=== PATIENT | male | born 2000 | race Hispanic/Latino ===

== ENCOUNTER 2024-11-20 15:05 | Observation (INO) | payer SELFPAY ==
[2024-11-20] VITALS (13 sets, daily range): BP systolic 126–158; BP diastolic 66–93; PULSE 83–125; RESP 15–24; TEMP 36.9–37.4; O2SAT 93–100; BMI 25.8; BMI 29.2
--- NOTE | 2024-11-20 | PATH_ITS ---
[facility] Accession Number: [id number] No. of containers..01 Tissue . 01 Material submitted: . appendix - APPENDIX . 01 Diagnosis: APPENDIX, APPENDECTOMY: Acute appendicitis and acute serositis. Negative for dysplasia or malignancy. MRV 11/25/2024 1456 Local . 01 Electronically signed: . Alize Armendariz MD, Pathologist NPI- [id number] . 01 Gross description: . The specimen is received in formalin, labeled with two patient identifiers and appendix, and consists of a 5.5 x 1.0 x 0.9 cm vermiform appendix with a 2.8 x 1.5 x 0.9 cm attached mesoappendix. The serosal surface is archibald-plaza with diffuse yellow to green laminated exudate and slightly congested serosal vessels. The appendiceal resection margin is stapled and is inked blue. The specimen is serially sectioned to slow an intact appendiceal wall ranging from 0.2 cm up to 0.3 cm. No perforation is appreciated. The lumen is focally dilated and ranges from 0.3 cm up to 1.4 cm in diameter. The lumen is filled with hemorrhagic and brown fecal material with a 0.8 cm, brown fecalith. Applications Engineer sections are submitted as follows: A1: Appendiceal resection margin and tip of appendix. A2: Applications Engineer cross sections. ([id number]) /[id number] 11/22/2024 1205 Local . 01 Pathologist provided ICD-10: K35.80 . 01 CPT . 555894 Specimen Comment: A courtesy copy of this report has been sent to [facility] Performed at: [address] [address], [place], [place] [id number] MD Russ Solorzano MD Phone: [phone]
--- NOTE | 2024-11-20 15:33 | ED.ABDPAIN ---
HPI - Abdominal Pain General Chief Complaint: Abdominal Pain Stated Complaint: back/abd pain , nausea Time Seen by Provider: 11/20/24 15:28 Source: patient Mode of arrival: Ambulatory History of Present Illness HPI narrative: This is a 24-year-old male presents emergency department due to abdominal pain for a day. He was not recall any accidents that may have caused this pain. He denies eating any abnormal foods. He states pain began this morning around his belly button and states that is somewhat worse in the right lower quadrant. Denies any changes in bowel movements. Last had a small cup of coffee roughly 730 and this morning. Reports some mild nausea. Denies any fevers. Denies any medical history or surgical history. Related Data Home Medications ?Medication ?Instructions ?Recorded ?Confirmed No Known Home Medications 11/20/24 11/20/24 Previous Rx's ?Medication ?Instructions ?Recorded oxycodone 5 mg tablet 5 mg PO Q3H PRN Pain, Moderate 11/21/24 (4-6) #20 tabs Allergies Allergy/AdvReac Type Severity Reaction Status Date / Time No Known Drug Allergies Allergy Unverified 11/20/24 15:17 Review of Systems Review of Systems Narrative: GENERAL: Denies chills, fatigue, malaise, fever, sweats. HEENT: Denies sinus pain, ear pain, sore throat, difficulty swallowing, dizziness. RESPIRATORY: Denies dyspnea, cough, wheezing, hemoptysis, sputum. CARDIOVASCULAR: Denies chest pain, palpitations, orthopnea, edema, GASTROINTESTINAL: Reports nausea and abdominal pain Denies , vomiting, diarrhea, constipation, melena. : Denies dysuria, frequency, incontinence, hematuria, urinary retention. MUSCULOSKELETAL: denies weakness, joint pain, or bony pain SKIN: Denies rash, skin lesions, or other NEUROLOGIC: Denies weakness, headache, numbness, change in speech, confusion, seizures, incoordination. PSYCHIATRIC: No concerning psychosocial issues. 12 point review of systems is negative except for those stated above Patient History Social History household members: family Smoking Status: Unknown if ever smoked alcohol intake: current additional social history: [facility]: living alone. [place] PMHX: none PSHX: none meds: none all: none tob: none etoh: 1 x/2 months 11/2024 Smoking Status: Unknown if ever smoked Exam Narrative Exam Narrative: GENERAL: Well-developed patient, in mild distress. HEAD: Atraumatic. Normocephalic. EYES: Pupils equal round and reactive. Extraocular motions intact. No scleral icterus. No injection or drainage. ENT: Nose without bleeding, purulent drainage. Throat without erythema, tonsillar hypertrophy or exudate. Airway patent. NECK: Trachea midline. Non tender EXTREMITIES: No edema or joint tenderness. NEURO: AOx3. SKIN: No rash or erythema of visible areas Abdomen: Nondistended. Periumbilical tenderness to palpation worse in his right lower quadrant Initial Vital Signs Initial Vital Signs: Vital Signs Temperature 99.2 F 11/20/24 15:17 Pulse Rate 83 11/20/24 15:17 Respiratory Rate 15 11/20/24 15:17 Blood Pressure 148/92 H 11/20/24 15:17 Pulse Oximetry 100 11/20/24 15:17 Oxygen Delivery Method Room Air 11/20/24 15:17 Course Orders Ordered: Discontinued Medications Acetaminophen (Acetaminophen 325 Mg Tablet) 650 mg PO Q6H [facility] Last Admin: 11/21/24 10:24 Dose: 650 mg Documented By: MARIA A Admin: 11/21/24 05:16 Dose: 650 mg Documented By: PHIL Fentanyl (Fentanyl 100 Mcg/2 Ml Inj) 0 mcg IV Q5MIN PRN PRN Reason: Pain, Severe (7-10) Hydromorphone HCl (Hydromorphone 1 Mg/Ml Syringe) 0 mg IV Q5MIN PRN PRN Reason: Pain, Mild (1-3) Hydroxyzine HCl (Hydroxyzine 50 Mg/Ml Inj) 25 mg IM NOW PRN PRN Reason: Pain, Mild (1-3) Piperacillin Sod/Tazobactam (Sod 4.5 gm/ Sodium Chloride) 100 mls @ 200 mls/hr IV NOW ONE Stop: 11/20/24 16:53 Last Infusion: 11/20/24 17:46 Dose: Infused Documented By: Admin: 11/20/24 17:13 Dose: 200 mls/hr Documented By: TESSA Lactated Ringer's (Lactated Ringers) 1,000 mls @ 21 mls/hr IV CONT [facility] Last Infusion: 11/21/24 03:38 Dose: Infused Documented By: Infusion: 11/21/24 03:37 Dose: 0 mls/hr Documented By: Infusion: 11/20/24 18:43 Dose: 21 mls/hr Documented By: Admin: 11/20/24 18:18 Dose: 21 mls/hr Documented By: TESSA Lactated Ringer's (Lactated Ringers) 1,000 mls @ 42 mls/hr IV CONT COLT Last Infusion: 11/20/24 22:20 Dose: Infused Documented By: Admin: 11/20/24 21:50 Dose: 42 mls/hr Documented By: Infusion: 11/20/24 21:50 Dose: Infused Documented By: Admin: 11/20/24 19:03 Dose: 42 mls/hr Documented By: MEL Piperacillin Sod/Tazobactam (Sod 3.375 gm/ Sodium Chloride) 100 mls @ 25 mls/hr IV NOW ONE Stop: 11/20/24 20:47 Last Infusion: 11/20/24 22:20 Dose: Infused Documented By: Admin: 11/20/24 20:36 Dose: 25 mls/hr Documented By: CONCHITA Acetaminophen (Ofirmev) 1,000 mg in 100 mls @ 400 mls/hr IV NOW ONE Stop: 11/20/24 21:54 Last Infusion: 11/20/24 21:54 Dose: Infused Documented By: Admin: 11/20/24 21:45 Dose: 400 mls/hr Documented By: MEL Potassium Chloride 20 meq/ (Dextrose/Sodium Chloride) 1,010 mls @ 100 mls/hr IV CONT COLT Last Admin: 11/21/24 03:35 Dose: Not Given Documented By: PHIL Potassium Chloride/Dextrose/Sod Cl (Dextrose 5%-0.45%Ns W/Kcl 20meq) 1,000 mls @ 100 mls/hr IV CONT COLT Last Infusion: 11/21/24 11:34 Dose: Infused Documented By: Admin: 11/21/24 00:18 Dose: 100 mls/hr Documented By: PHIL Ibuprofen (Ibuprofen 600 Mg Tablet) 600 mg PO Q6H COLT Last Admin: 11/21/24 10:25 Dose: 600 mg Documented By: Admin: 11/21/24 05:16 Dose: 600 mg Documented By: PHIL Meperidine HCl (Meperidine 50 Mg/Ml Inj) 12.5 mg IV PACUNOW PRN PRN Reason: Mild pain or shivering Morphine Sulfate (Morphine 4 Mg/Ml Inj) 4 mg IV NOW ONE Stop: 11/20/24 15:51 Last Admin: 11/20/24 16:18 Dose: 4 mg Documented By: KHUSHI Naloxone HCl (Naloxone 0.4 Mg/Ml Vial) 0.2 mg IV Q2MIN PRN PRN Reason: Opiate Reversal Ondansetron HCl (Ondansetron 4 Mg/2 Ml Inj) 4 mg IV NOW PRN PRN Reason: Nausea And Vomiting Last Admin: 11/20/24 16:18 Dose: 4 mg Documented By: KHUSHI Ondansetron HCl (Ondansetron 4 Mg Odt) 4 mg PO NOW PRN PRN Reason: Nausea And Vomiting Ondansetron HCl (Ondansetron 4 Mg/2 Ml Inj) 4 mg IV NOW PRN PRN Reason: Nausea And Vomiting Ondansetron HCl (Ondansetron 4 Mg Odt) 4 mg PO Q4HR PRN PRN Reason: Nausea And Vomiting Oxycodone HCl (Oxycodone Ir 5 Mg Tablet) 5 mg PO PACUNOW PRN PRN Reason: Mild or moderate pain Oxycodone HCl (Oxycodone Ir 5 Mg Tablet) 5 mg PO Q3H PRN PRN Reason: Pain, Moderate (4-6) Oxycodone HCl (Oxycodone Ir 10 Mg Tablet) 10 mg PO Q3H PRN PRN Reason: Pain, Severe (7-10) Last Admin: 11/21/24 08:21 Dose: 10 mg Documented By: MARIA A Admin: 11/20/24 23:55 Dose: 10 mg Documented By: PHIL Vital Signs Vital signs: Vital Signs - 8 hr 11/20/24 15:17 11/20/24 16:54 11/20/24 17:07 Temperature 99.2 F 98.4 F Pulse Rate 83 94 H 97 H Respiratory Rate 15 16 18 Blood Pressure 148/92 H 137/84 Pulse Oximetry 100 100 100 Oxygen Delivery Method Room Air Room Air Room Air MDM - Abdominal Pain Lab Data 11/20/24 15:34 11/20/24 15:34 Labs: Lab Results 11/20/24 11/20/24 Range/Units 15:26 15:34 WBC 18.9 H (4.5-11.0) X10^3/uL RBC 5.49 (4.5-5.9) X10^6/uL Hgb 16.3 (13.5-17.5) g/dL Hct 47.0 (41-53) % MCV 85.5 (80-100) fL MCH 29.7 (26-34) PG MCHC 34.7 (30-36) % RDW 13.0 (11.6-14.8) % Plt Count 191 (150-400) X10^3/uL Neut % (Auto) 91.7 H (50-75) % Lymph % (Auto) 2.3 L (25-40) % [place] % (Auto) 5.2 (3-14) % Eos % (Auto) 0.3 L (2-4) % Baso % (Auto) 0.5 (0-2) % Neut # (Auto) 83692 H (2089-7692) /uL Lymph # (Auto) 400 L (0328-6340) /uL [place] # (Auto) 1000 H (0-900) /uL Eos # (Auto) 100 (0-450) /uL Baso # (Auto) 100 (0-100) /uL Sodium 136 L (137-145) mmol/L Potassium 3.9 (3.4-5.1) mmol/L Chloride 98 (98-107) mmol/L Carbon Dioxide 25 (22-32) mmol/L BUN 12 (9-20) mg/dL Creatinine 0.90 (0.66-1.25) mg/dL Estimated GFR > 60 (>60) mL/min BUN/Creatinine Ratio 13.3 (6-22) Glucose 111 H (70-99) mg/dL Lactate 1.3 (0.7-2.1) mmol/L Calcium 9.7 (8.4-10.2) mg/dL Total Bilirubin 1.0 (0.2-1.3) mg/dL AST 39 (17-59) IU/L ALT 43 (<50) IU/L Alkaline Phosphatase 78 (38-126) U/L C-Reactive Protein 0.7 (<1.0) mg/dL Total Protein 8.4 H (6.3-8.2) g/dL Albumin 4.9 (3.5-5.0) g/dL Globulin 3.5 (1.7-4.1) g/dL Albumin/Globulin Ratio 1.4 (1.0-2.8) Lipase 53 (23-300) U/L Urine Color Yellow Urine Appearance Clear Urine pH 6.0 (4.5-8.0) Ur Specific [place] >=1.030 H (1.000-1.035) Urine Protein Negative (Negative) Urine Glucose (UA) Negative (Negative) g/dL Urine Ketones 3+ H (NEGATIVE) Urine Occult Blood Trace-intact (Negative) Urine Nitrate Negative (Negative) Urine Bilirubin 1+ H (NEGATIVE) Ur Bilirubin Confirm Negative (Negative) Urine Urobilinogen 1.0 (0.2) E.U./dL Ur Leukocyte Esterase Negative (NEGATIVE) Urine RBC 0-1/hpf (0-5/HPF) Urine WBC 1-5/hpf (0-5/HPF) Ur Squamous Epith Cells 1-5 /hpf (0-5/HPF) Urine Bacteria None seen (None) Ur Culture Indicated? Cult not indicated Vol Urine Centrifuged Low vol <10ml (spun) A Imaging Data CT scan - abdomen/pelvis: Radiologist's Impression: [place] [address] CT Scan Report Signed Patient: Homero Evans MR#: [id number] : 2000 Acct:[id number] Age/Sex: 24 / M Date of Service: 11/20/24 Loc: ED Accession Number: [id number] Procedure: CT abdomen pelvis w con Ordering Provider: Dat Amado PA-C PROCEDURE: CT ABDOMEN PELVIS W CON INDICATIONS: RLQ pain, leukocytosis TECHNIQUE: After the administration of intravenous contrast, axial sections acquired from the lung bases to the pubic symphysis. Coronal and sagittal reformats were performed. For radiation dose reduction, the following was used: automated exposure control, adjustment of mA and/or kV according to patient size. COMPARISON: None. FINDINGS: Image quality: Diagnostic. Lower Chest: No significant findings. ABDOMEN: Liver: No solid mass. Gallbladder: No radiopaque gallstones or wall thickening. Biliary ducts: No biliary dilation. Pancreas: No ductal dilation. Spleen: Size is within normal limits. Adrenal Glands: No adrenal nodules. Kidneys and Ureters: No hydronephrosis. No solid mass. No complex renal cystic lesion which requires follow up. Stomach and Bowel: Dilated appendix to 11 mm with a few calcified appendicoliths. There is minimal periappendiceal fat stranding. No fluid collection or pneumoperitoneum. Small bowel loops are nondilated. Peritoneum: No abnormal intraperitoneal fluid. No free air. Ventral Wall: Tiny fat containing periumbilical hernia. Abdominal Nodes: No retroperitoneal or mesenteric adenopathy by size criteria. Vessels: Aorta and inferior vena cava are normal in size. PELVIS: Pelvic Organs: Unremarkable. Bladder: No bladder wall thickening, accounting for underdistention. Pelvic Nodes: No enlarged lymph nodes. Miscellaneous: No inguinal hernias are seen. Bones: No aggressive osseous abnormality. IMPRESSION: Dilated appendix to 11 mm with calcified appendicoliths and trace periappendiceal fat stranding, moderately suspicious for acute appendicitis. No fluid collection or pneumoperitoneum. MDM Narrative Medical decision making narrative: ED course: Otherwise healthy 24-year-old male presenting to the emergency department due to day history of abdominal pain worse in the right lower quadrant. Lab work notable for white count of 18.9, CT showed evidence of appendicitis. Dr. Nevarez of General surgery was consulted and he will take to the OR later tonight, as assistance very much appreciated. Zosyn given as well. CC: Abdominal pain Complicating co-morbidities: None Data collected from: Previous notes Medical records reviewed: Seen by PCP earlier today there is a sharp and strong bilateral lower abdominal pain for 1 day. Negative for COVID. Had a normal bowel movement earlier today. Has not nausea as well. Sent to emergency department. Differential considered, but not limited to: Appendicitis Exam documented above, pertinent findings include: Right lower quadrant tenderness to palpation Lab Test results independently reviewed as above. Pertinent findings: Leukocytosis as noted above Imaging studies independently reviewed: CT showed evidence appendicitis Scores Used: None MIPS Elements: None Consultations: None Treatments: Zosyn Re-evaluations: None Discussion: Discussed plan with the patient was comfortable with the plan Diagnosis: Acute appendicitis Disposition: see below, along with detailed discharge instructions that have been reviewed with patient as well as indications for ED re-evaluation and additional outpatient follow up Discharge Plan Departure Patient Disposition: Admitted as Observation Clinical Impression: Acute appendicitis Admit Date/Time: 11/20/24 17:53 Admit Provider: Demond Nevarez
[2024-11-20 15:49] LABS: Add Manual Diff / Slide Review NO; Hematocrit 47.0 % (41-53); Hemoglobin 16.3 g/dL (13.5-17.5); Lymphocytes Absolute Auto 400 /uL (1100-4500); Mean Corpuscular HGB Conc 34.7 % (30-36); Mean Corpuscular Hemoglobin 29.7 PG (26-34); Mean Corpuscular Volume 85.5 fL (80-100); Platelet Count 191 X10^3/uL (150-400)
--- NOTE | 2024-11-20 15:52 | DI.CT.S_ITS ---
PROCEDURE: CT ABDOMEN PELVIS W CON INDICATIONS: RLQ pain, leukocytosis TECHNIQUE: After the administration of intravenous contrast, axial sections acquired from the lung bases to the pubic symphysis. Coronal and sagittal reformats were performed. For radiation dose reduction, the following was used: automated exposure control, adjustment of mA and/or kV according to patient size. COMPARISON: None. FINDINGS: Image quality: Diagnostic. Lower Chest: No significant findings. ABDOMEN: Liver: No solid mass. Gallbladder: No radiopaque gallstones or wall thickening. Biliary ducts: No biliary dilation. Pancreas: No ductal dilation. Spleen: Size is within normal limits. Adrenal Glands: No adrenal nodules. Kidneys and Ureters: No hydronephrosis. No solid mass. No complex renal cystic lesion which requires follow up. Stomach and Bowel: Dilated appendix to 11 mm with a few calcified appendicoliths. There is minimal periappendiceal fat stranding. No fluid collection or pneumoperitoneum. Small bowel loops are nondilated. Peritoneum: No abnormal intraperitoneal fluid. No free air. Ventral Wall: Tiny fat containing periumbilical hernia. Abdominal Nodes: No retroperitoneal or mesenteric adenopathy by size criteria. Vessels: Aorta and inferior vena cava are normal in size. PELVIS: Pelvic Organs: Unremarkable. Bladder: No bladder wall thickening, accounting for underdistention. Pelvic Nodes: No enlarged lymph nodes. Miscellaneous: No inguinal hernias are seen. Bones: No aggressive osseous abnormality. IMPRESSION: Dilated appendix to 11 mm with calcified appendicoliths and trace periappendiceal fat stranding, moderately suspicious for acute appendicitis. No fluid collection or pneumoperitoneum. Approved by: Magnus Greene M.D. on 11/20/2024 at 16:42
[2024-11-20 16:05] LABS: Appearance Urine UA CLEAR; Bilirubin Urine UA 1+ (NEGATIVE); Color Urine UA YELLOW; Glucose Urine UA NEGATIVE (Negative); Ketones Urine UA 3+ (NEGATIVE); Leukocyte Esterase Urine UA NEGATIVE (NEGATIVE); Nitrite Urine UA NEGATIVE (Negative); Occult Blood Urine UA TRACE-INTACT (Negative); Protein Urine UA NEGATIVE (Negative); Specific Gravity Urine UA >=1.030 (1.000-1.035); Urobilinogen Urine UA 1.0 E.U./dL (0.2); pH Urine UA 6.0 (4.5-8.0)
[2024-11-20 16:07] LABS: Lipase 53 U/L (23-300)
[2024-11-20 16:08] LABS: Alanine Aminotransferase 43 IU/L (<50); Albumin 4.9 g/dL (3.5-5.0); Albumin Globulin Ratio 1.4 (1.0-2.8); Alkaline Phosphatase 78 U/L (38-126); Blood Urea Nitrogen 12 mg/dL (9-20); Calcium 9.7 mg/dL (8.4-10.2); Carbon Dioxide 25 mmol/L (22-32); Chloride 98 mmol/L (98-107); Estimated Glomerular Filt Rate > 60 mL/min (>60); Globulin 3.5 g/dL (1.7-4.1); Glucose 111 mg/dL (70-99); HEMOLYSIS < 15 (0-50); Potassium 3.9 mmol/L (3.4-5.1); Sodium 136 mmol/L (137-145); Total Protein 8.4 g/dL (6.3-8.2)
[2024-11-20] MEDS: ONDANSETRON 4 MG/2 ML INJ IV (16:18)
[2024-11-20] MEDS: MORPHINE 4 MG/ML INJ IV (16:18)
[2024-11-20 16:23] LABS: Lactate (Lactic Acid) 1.3 mmol/L (0.7-2.1)
[2024-11-20 16:31] LABS: Culture Indicated Urine Cult Not Indicated; Ictotest Urine Negative (Negative)
[2024-11-20] MEDS: PIPERACILLIN/TAZO 4.5 GM in SODIUM CHLORIDE 0.9% 100 ML IV (17:13)
--- NOTE | 2024-11-20 17:54 | PM.HP.IH.1 ---
History of Present Illness History of Present Illness Date Patient Seen: 11/20/24 Time Patient Seen: 17:54 Chief complaint: back/abd pain , nausea Narrative: The patient is a 24-year-old male who presents with about a 10-12 hour history of abdominal pain. The patient stated he awoke this morning with periumbilical abdominal pain. He described the pain as an ache with sharp exacerbations. The pain appears to have shifted more to the right lower quadrant. The pain is worse with movement and is best when he lies still. He describes some nausea but no vomiting. He last had some coffee this morning around 730 and he had a small sip of water in route to the hospital. He describes nausea but no vomiting. He denies fevers and chills. [facility], [facility] Social History Smoking Status: Unknown if ever smoked additional social history: [facility]: living alone. has cousin here works on [place] PMHX: none PSHX: none meds: none all: none tob: none etoh: 1 x/2 months 11/2024 Meds Home Medications and Allergies Home Medications ?Medication ?Instructions ?Recorded ?Confirmed ?Type No Known Home Medications 11/20/24 11/20/24 History Allergies Allergy/AdvReac Type Severity Reaction Status Date / Time No Known Drug Allergies Allergy Unverified 11/20/24 15:17 Review of Systems Review of Systems ROS: Yes All systems reviewed with the patient and are negative except as otherwise documented Exam Vital Signs (past 8 hours): - 11/20/24 15:17 11/20/24 16:54 11/20/24 17:07 Temperature 99.2 F 98.4 F Pulse Rate 83 94 H 97 H Respiratory Rate 15 16 18 Blood Pressure 148/92 H 137/84 Pulse Oximetry 100 100 100 Oxygen Delivery Method Room Air Room Air Room Air Oxygen Delivery Method Room Air Narrative Exam Narrative: The patient is alert and oriented appears to be in no acute distress. Tongue and buccal mucosa appeared to be dry Neck is supple Lungs are clear to auscultation bilaterally Cardiac reveals a regular rate and rhythm Abdomen is soft with right lower and left lower quadrant tenderness. He has voluntary guarding. He has percussion tenderness. Bowel sounds are active. Extremities reveal full range of motion. Objective Imaging CT scan - abdomen: Radiologist's impression: [address] [address] [address] Scan Report Signed Patient: Homero Evans MR#: [id number] : 2000 Acct:[id number] Age/Sex: 24 / M Date of Service: 11/20/24 Loc: ED Accession Number: [id number] Procedure: CT abdomen pelvis w con Ordering Provider: Dat Amado PA-C PROCEDURE: CT ABDOMEN PELVIS W CON INDICATIONS: RLQ pain, leukocytosis TECHNIQUE: After the administration of intravenous contrast, axial sections acquired from the lung bases to the pubic symphysis. Coronal and sagittal reformats were performed. For radiation dose reduction, the following was used: automated exposure control, adjustment of mA and/or kV according to patient size. COMPARISON: None. FINDINGS: Image quality: Diagnostic. Lower Chest: No significant findings. ABDOMEN: Liver: No solid mass. Gallbladder: No radiopaque gallstones or wall thickening. Biliary ducts: No biliary dilation. Pancreas: No ductal dilation. Spleen: Size is within normal limits. Adrenal Glands: No adrenal nodules. Kidneys and Ureters: No hydronephrosis. No solid mass. No complex renal cystic lesion which requires follow up. Stomach and Bowel: Dilated appendix to 11 mm with a few calcified appendicoliths. There is minimal periappendiceal fat stranding. No fluid collection or pneumoperitoneum. Small bowel loops are nondilated. Peritoneum: No abnormal intraperitoneal fluid. No free air. Ventral Wall: Tiny fat containing periumbilical hernia. Abdominal Nodes: No retroperitoneal or mesenteric adenopathy by size criteria. Vessels: Aorta and inferior vena cava are normal in size. PELVIS: Pelvic Organs: Unremarkable. Bladder: No bladder wall thickening, accounting for underdistention. Pelvic Nodes: No enlarged lymph nodes. Miscellaneous: No inguinal hernias are seen. Bones: No aggressive osseous abnormality. IMPRESSION: Dilated appendix to 11 mm with calcified appendicoliths and trace periappendiceal fat stranding, moderately suspicious for acute appendicitis. No fluid collection or pneumoperitoneum. Labs 11/20/24 15:34 11/20/24 15:34 Labs: Laboratory Results - last 24 hr 11/20/24 11/20/24 15:26 15:34 WBC 18.9 H RBC 5.49 Hgb 16.3 Hct 47.0 MCV 85.5 MCH 29.7 MCHC 34.7 RDW 13.0 Plt Count 191 Neut % (Auto) 91.7 H Lymph % (Auto) 2.3 L [place] % (Auto) 5.2 Eos % (Auto) 0.3 L Baso % (Auto) 0.5 Neut # (Auto) 67056 H Lymph # (Auto) 400 L [place] # (Auto) 1000 H Eos # (Auto) 100 Baso # (Auto) 100 Sodium 136 L Potassium 3.9 Chloride 98 Carbon Dioxide 25 BUN 12 Creatinine 0.90 Estimated GFR > 60 BUN/Creatinine Ratio 13.3 Glucose 111 H Lactate 1.3 Calcium 9.7 Total Bilirubin 1.0 AST 39 ALT 43 Alkaline Phosphatase 78 C-Reactive Protein 0.7 Total Protein 8.4 H Albumin 4.9 Globulin 3.5 Albumin/Globulin Ratio 1.4 Lipase 53 Urine Color Yellow Urine Appearance Clear Urine pH 6.0 Ur Specific [place] >=1.030 H Urine Protein Negative Urine Glucose (UA) Negative Urine Ketones 3+ H Urine Occult Blood Trace-intact Urine Nitrate Negative Urine Bilirubin 1+ H Ur Bilirubin Confirm Negative Urine Urobilinogen 1.0 Ur Leukocyte Esterase Negative Urine RBC 0-1/hpf Urine WBC 1-5/hpf Ur Squamous Epith Cells 1-5 /hpf Urine Bacteria None seen Ur Culture Indicated? Cult not indicated Vol Urine Centrifuged Low vol <10ml (spun) A Assessment & Plan Assessment and plan (1) Acute appendicitis: Status: Acute Plan Plan a laparoscopic appendectomy. Indications, planned procedure, and inherent risks were explained to the patient through an senior finance manager, his cousin. He appears to understand and agrees to proceed as outlined. The patient has already been given prophylactic Zosyn. Time-Based Coding :: [TOTAL MINUTES] spent with patient and on the chart (including review of chart, obtaining history, exam, reviewing outside data, placing orders, documenting exam and treatment plan, and counseling patient) on [DATE]. PROFEE Forensic Document Examiner Document charge(s): Yes
[2024-11-20] MEDS: LACTATED RINGERS 1,000 ML 21 ML IV (18:18)
[2024-11-20] MEDS: LACTATED RINGERS 1,000 ML 42 ML IV ×2 (19:03→21:50)
[2024-11-20] MEDS: PIPERACILLIN/TAZO 3.375 GM in SODIUM CHLORIDE 0.9% 100 ML IV (20:36)
--- NOTE | 2024-11-20 20:36 | SUR.OPER ---
Supine on padded OR bed, head on pillow, arms padded and tucked at sides, legs uncrossed, safety belt at thigh, tape over blanket over lower legs .
[2024-11-20] MEDS: ACETAMINOPHEN IV 1,000 MG/100 ML VIAL 400 MG IV (21:45)
--- NOTE | 2024-11-20 22:00 | P.OP_ITS ---
Operative Date/Time/Diagnoses Date of procedure: 11/20/24 Time of procedure: 22:00 Pre-op diagnosis: Acute appendicitis Post-op diagnosis: same Procedure & Clinicians Procedure: Laparoscopic appendectomy Same procedure(s) as scheduled: Yes Indications: Acute appendicitis Surgeon: OFELIA* *Temp Assisted?: No Anesthesia Type: General Operative Notes Findings: After appropriate patient identification, the patient was placed on the procedure table in supine position. After achievement adequate general anesthesia, bilateral tap blocks were completed by the [employer] INST[employer]ER and the abdomen was prepped with ChloraPrep and draped in a sterile manner. After the time-out, a midline incision was fashioned a 15 blade knife above the umbilicus. The incision was deepened through dermis and subcutaneous tissue the linea alba using Bovie electrocautery. The linea Alba was opened under direct vision using Bovie electrocautery. The peritoneum was entered using blunt dissection with the neck index finger. A [id number] suture of 0 Vicryl was placed. A Vance catheter was placed into the wound and the balloon was insufflated. The abdomen was insufflated with carbon dioxide to 15 mmHg pressure. A left lower quadrant 5 mm trocar was placed through a stab incision under direct vision. A 5 mm trocar was placed in suprapubic region for 2nd incision and direct vision. The appendix was grasped with a grasping clamp and retracting appropriate fashion. The base of the appendix identified as it entered into the cecum. The mesoappendix was dissected using a [place] dissector. An Endo-MORGAN stapler was passed through the Vance catheter with tissue load and was placed at the base of the appendix and fired. A 2nd load, a vascular load, was passed through the Vance catheter and the mesoappendix was transected and stapled at the same time. The appendix was placed in a specimen bag and brought out through this supraumbilical incision. The Vance catheter was reinserted the eye was re-insufflated with carbon dioxide to 15 mm Hg pressure The eye was inspected and hemostasis was assured. All trocars were removed under direct vision. The previously placed 0 Vicryl suture was tied thereby closing the linea Alba of the supraumbilical incision. All skin incisions were reapproximated using 4-0 undyed Monocryl in an interrupted subcuticular fashion. Steri-Strips and sterile dressing were placed and the procedure was terminated. The patient was transferred to the recovery room in good condition having sustained approximately 2 cc blood loss. Closure Type: primary Specimen(s): other Applied: none Estimated Blood Loss (mL): 2 Complications: none Post-operative Condition: stable Disposition: PACU
[2024-11-21] MEDS: DEXTROSE 5%-0.45NS W/KCL 20MEQ 1,000 ML 100 MEQ IV (00:18)
[2024-11-21 00:20] VITALS: BP 117/68; PULSE 103; O2SAT 94
[2024-11-21 01:20] VITALS: BP 113/69; PULSE 80; O2SAT 96
--- NOTE | 2024-11-21 02:46 | PC.NURSE ---
Admitted to acute care from PACU at 22:20
[2024-11-21 05:00] VITALS: BP 102/59; PULSE 92; RESP 16; TEMP 36.9; O2SAT 96
[2024-11-21] MEDS: IBUPROFEN 600 MG TABLET PO ×2 (05:16→10:25)
[2024-11-21] MEDS: ACETAMINOPHEN 325 MG TABLET 650 MG PO ×2 (05:16→10:24)
[2024-11-21 08:45] VITALS: BP 103/58; PULSE 91; RESP 14; TEMP 37.2; O2SAT 97
--- NOTE | 2024-11-21 10:36 | P.PN_ITS ---
Subjective Subjective Date Patient Seen: 11/21/24 Interval history: Patient is doing well and tolerating a regular diet. He does complain of some incisional pain. He denies nausea and vomiting. Exam Vital Signs (past 8 hours): - 11/21/24 05:00 11/21/24 08:45 Temperature 98.4 F 99.0 F Pulse Rate 92 H 91 H Respiratory Rate 16 14 Blood Pressure 102/59 L 103/58 L Pulse Oximetry 96 97 Oxygen Flow Rate 0 0 Oxygen Delivery Method Room Air Oxygen Flow Rate 0 Narrative Exam Narrative: Lungs CTA Abdomen with mild distention soft with some diffuse abdominal tenderness. There is some sanguinous staining of the supraumbilical incision. Objective Labs 11/20/24 15:34 11/20/24 15:34 Labs: Laboratory Results - last 24 hr 11/20/24 11/20/24 15:26 15:34 WBC 18.9 H RBC 5.49 Hgb 16.3 Hct 47.0 MCV 85.5 MCH 29.7 MCHC 34.7 RDW 13.0 Plt Count 191 Neut % (Auto) 91.7 H Lymph % (Auto) 2.3 L Perkins % (Auto) 5.2 Eos % (Auto) 0.3 L Baso % (Auto) 0.5 Neut # (Auto) 71316 H Lymph # (Auto) 400 L Perkins # (Auto) 1000 H Eos # (Auto) 100 Baso # (Auto) 100 Sodium 136 L Potassium 3.9 Chloride 98 Carbon Dioxide 25 BUN 12 Creatinine 0.90 Estimated GFR > 60 BUN/Creatinine Ratio 13.3 Glucose 111 H Lactate 1.3 Calcium 9.7 Total Bilirubin 1.0 AST 39 ALT 43 Alkaline Phosphatase 78 C-Reactive Protein 0.7 Total Protein 8.4 H Albumin 4.9 Globulin 3.5 Albumin/Globulin Ratio 1.4 Lipase 53 Urine Color Yellow Urine Appearance Clear Urine pH 6.0 Ur Specific [place] >=1.030 H Urine Protein Negative Urine Glucose (UA) Negative Urine Ketones 3+ H Urine Occult Blood Trace-intact Urine Nitrate Negative Urine Bilirubin 1+ H Ur Bilirubin Confirm Negative Urine Urobilinogen 1.0 Ur Leukocyte Esterase Negative Urine RBC 0-1/hpf Urine WBC 1-5/hpf Ur Squamous Epith Cells 1-5 /hpf Urine Bacteria None seen Ur Culture Indicated? Cult not indicated Vol Urine Centrifuged Low vol <10ml (spun) A [facility] Social History household members: family Smoking Status: Unknown if ever smoked alcohol intake: current additional social history: [place]: [place] PMHX: none PSHX: none meds: none all: none tob: none etoh: 1 x/2 months 11/2024 Assessment & Plan Assessment and plan (1) Acute appendicitis: Status: Acute Plan We will discharge to home today. I have discussed the patient with Dr. Molina as I am somewhat concerned about a possible mucinous neoplasm of the appendix. Dr. Molina will follow up with him in the next 10-14 days. Time-Based Coding :: [TOTAL MINUTES] spent with patient and on the chart (including review of chart, obtaining history, exam, reviewing outside data, placing orders, documenting exam and treatment plan, and counseling patient) on [DATE]. PROFEE Fire Range Technician Document charge(s): Yes
--- NOTE | 2024-11-21 10:48 | P.DS_ITS ---
History of Present Illness History of Present Illness Date Patient Seen: 11/21/24 Chief complaint: back/abd pain , nausea Narrative: The patient is a 24-year-old male who presents with about a 10-12 hour history of abdominal pain. The patient stated he awoke this morning with periumbilical abdominal pain. He described the pain as an ache with sharp exacerbations. The pain appears to have shifted more to the right lower quadrant. The pain is worse with movement and is best when he lies still. He describes some nausea but no vomiting. He last had some coffee this morning around 730 and he had a small sip of water in route to the hospital. He describes nausea but no vomiting. He denies fevers and chills. Discharge Providers Provider Date of admission: 11/20/24 17:53 Discharge Date: 11/21/24 Primary care physician: Doctor Brigitte MD Consults: 11/20/24 21:52 Consult to Discharge Planning Routine Comment: Discharge provider: Demond Nevarez MD Summary Hospital Course Hospital Course: The patient underwent a laparoscopic appendectomy yesterday evening. His postop course was completely unremarkable. Time Spent with Patient Time spent: Less than 30 minutes Exam Vital Signs (past 8 hours): - 11/21/24 05:00 11/21/24 08:45 Temperature 98.4 F 99.0 F Pulse Rate 92 H 91 H Respiratory Rate 16 14 Blood Pressure 102/59 L 103/58 L Pulse Oximetry 96 97 Oxygen Flow Rate 0 0 Oxygen Delivery Method Room Air Oxygen Flow Rate 0 Narrative Exam Narrative: Lungs CTA Abdomen shows mild distention, soft with diffuse abdominal tenderness with some voluntary guarding. There is some sanguinous staining on the supraumbilical dressing. Objective Labs 11/20/24 15:34 11/20/24 15:34 Labs: Laboratory Results - last 24 hr 11/20/24 11/20/24 15:26 15:34 WBC 18.9 H RBC 5.49 Hgb 16.3 Hct 47.0 MCV 85.5 MCH 29.7 MCHC 34.7 RDW 13.0 Plt Count 191 Neut % (Auto) 91.7 H Lymph % (Auto) 2.3 L [place] % (Auto) 5.2 Eos % (Auto) 0.3 L Baso % (Auto) 0.5 Neut # (Auto) 59903 H Lymph # (Auto) 400 L [place] # (Auto) 1000 H Eos # (Auto) 100 Baso # (Auto) 100 Sodium 136 L Potassium 3.9 Chloride 98 Carbon Dioxide 25 BUN 12 Creatinine 0.90 Estimated GFR > 60 BUN/Creatinine Ratio 13.3 Glucose 111 H Lactate 1.3 Calcium 9.7 Total Bilirubin 1.0 AST 39 ALT 43 Alkaline Phosphatase 78 C-Reactive Protein 0.7 Total Protein 8.4 H Albumin 4.9 Globulin 3.5 Albumin/Globulin Ratio 1.4 Lipase 53 Urine Color Yellow Urine Appearance Clear Urine pH 6.0 Ur Specific [place] >=1.030 H Urine Protein Negative Urine Glucose (UA) Negative Urine Ketones 3+ H Urine Occult Blood Trace-intact Urine Nitrate Negative Urine Bilirubin 1+ H Ur Bilirubin Confirm Negative Urine Urobilinogen 1.0 Ur Leukocyte Esterase Negative Urine RBC 0-1/hpf Urine WBC 1-5/hpf Ur Squamous Epith Cells 1-5 /hpf Urine Bacteria None seen Ur Culture Indicated? Cult not indicated Vol Urine Centrifuged Low vol <10ml (spun) A [facility] Social History household members: family Smoking Status: Unknown if ever smoked alcohol intake: current additional social history: [facility]: living alone. has cousin here works on [employer] PMHX: none PSHX: none meds: none all: none tob: none etoh: 1 x/2 months 11/2024 Discharge Assessment & Plan Assessment and Plan Assessment: Acute appendicitis Plan of Treatment: The patient is to be discharged home today. He was given 20 oxycodone 5 mg for postop pain management. I have discussed the patient with Dr. Radha Beck who will see him in follow up. Expected follow up will be within the next 10-14 days. Discharge Plan Discharge Plan Patient Disposition: Home Discharge orders & Medications Prescriptions: New oxycodone 5 mg Tablet 5 mg PO Q3H PRN (Reason: Pain, Moderate (4-6)) Qty: 20 0RF No Action No Known Home Medications Follow up/Referrals: Leonides Molina MD [Physician, General Surgery] Khushi Sanchez RN [Emergency Nurse, Nursing] Demond Nevarez MD [Physician, General Surgery] Visit Report/Discharge Packet Stand Alone Forms: Patient Portal/API, Stroke Signs & Symptoms Discharge Data Primary Care Provider: Miscellaneous,Doctor Attending Provider: Demond Nevarez Admit Date/Time: 11/20/24 17:53 PROFEE Charge Codes Discharge inpatient/observation: [id number]
--- NOTE | 2024-11-21 11:36 | PC.NURSE ---
Discharge Note Patient A&O, VSS, RA, no complaints of pain/discomfort. Discharge packet reviewed with patient, all questions/concerns addressed. PIV discontinued. Patient able to dress self and pack all belongings. Patient taken down via wheelchair to POV.
--- NOTE | 2024-11-21 11:46 | CM.DANOTE ---
DCP Assessment Note: Pt is a 24yo male, resident of [place], is admitted for acute appendicitis. Pt lives in a house with family. Pt's Primary Care Provider is unknown and no insurance on file/Self Pay. Reviewed chart and discussed with multidisciplinary team pt's medical status and initial discharge needs. Pt cleared for discharge per Surgeon. DCP met w/patient at bedside; introduced self and role. Patient was found in bed, alert and oriented, cooperative with assessment. Pt confirmed living situation and good support in family/friends who are at bedside. No needs identified by pt or family. Plan: Discharge orders in, anticipating dc home with family on 11/21 or when medically cleared. CM team will follow closely for coordination of discharge plans. Norma Beck [employer] INTELLIGENCE OFFICER Discharge Planning/Care Management CM Discharge Assessment Start: 11/20/24 18:59 Freq: Status: Active Protocol: Document 11/21/24 11:45 MW (Rec: 11/21/24 11:46 MW [id number]) Discharge Planning Assessment Assigned Discharge ABI [employer] [place] Advance Directives? No History Provided By Patient Prior Living Mobile home Arrangements Household Members family Independent with ADL Yes 's Is patient alert and Yes oriented? Discharge Plan Home Review Status In Process Please Provide Date 11/21/24 Initial DC Assessment Was Performed Next Review Type Continued Stay Review
== END 2024-11-21 11:30 | disposition home or self-care (01) ==
LOC: ED 15:28 → AC 17:53
PROVIDERS: Student in an Organized Health Care Education/Training Program; Admitting Provider Surgery Trauma Surgery; Emergency Provider Physician Assistant Medical; Referring Provider Physician Assistant Medical; Visit Provider Surgery Trauma Surgery
PROC: 0DTJ4ZZ Resection of Appendix, Percutaneous Endoscopic Approach (ICD-10-PCS; CPT 44970; principal; 2024-11-20 20:00)
DX: K35.80 Unspecified acute appendicitis (principal)
CPT/HCPCS: 44970; 36415; 74177; 80053; 81001; 83605; 83690; 85025; 86140; 87040; 96365; 96366; 96367; 96375; 99222; 99284; G0378; J0131; J1100; J1171; J1885; J2250; J2272; J2405; J2543; J2704; J3010; J7050; J7120; Q9967